=== PATIENT | female | born 1970 | race Caucasian/White ===

== ENCOUNTER 2024-02-06 13:11 | Outpatient (CLI) | payer BC, SELFPAY ==
--- NOTE | ~2024-02-06 | US_ITS ---
EXAMINATION: US thyroid DATE: 02/06/2024 13:48 INDICATION: Thyroid nodule. TECHNIQUE: Multiple ultrasound images of the thyroid were obtained. COMPARISON: None. FINDINGS: The right thyroid lobe measures 6.5 x 2.2 x 2.3 cm. The left thyroid lobe measures 5.8 x 2.1 x 2.4 c m. There is diffusely heterogeneous and hypoechoic. Vascularity is normal. In the left thyroid lobe, there is a 2.4 cm solid, isoechoic, wider than tall nodule with ill-defined margin without echogenic foci (TI-RADS TR3). In the right thyroid lobe, there is a 2.0 cm solid, hypoechoic, wider than tall nodule with smooth margin without echogenic foci (TR4). In the right thyroid lobe, there is a 17 mm s olid, hypoechoic, wider than tall nodule with ill-defined margin without echogenic foci (TR4). IMPRESSION: 1. Multinodular goiter. Ultrasound-guided fine-needle aspiration of 2 nodules is recommended. Reviewed, dictated and finalized at location E. IMPRESSION: 1. Multinodular goiter. Ultrasound-guided fine-needle aspiration of 2 nodules i s recommended.
== END 2024-02-06 13:12 ==
LOC: MICIMG 13:14
PROVIDERS: PCP Internal Medicine; Visit Provider Nurse Practitioner
DX: E04.2 Nontoxic multinodular goiter (principal)
CPT/HCPCS: 76536

== ENCOUNTER 2024-12-12 11:47 | Outpatient (CLI) | payer BC, SELFPAY ==
--- NOTE | ~2024-12-12 | US_ITS ---
Pelvic ultrasound. Clinical History: Abnormal uterine bleeding Technique: Realtime transvaginal scanning of the pelvis was performed. Color flow Doppler and Doppler spectral analysis were performed. Findings: The uterus is anteverted, and measures 9.4 x 4.6 x 5.5 cm. The endometrial stripe has a th ickness of 3 mm. Lower uterine segment fibroid measures 2.4 cm in diameter. Probable ill-defined intr amural fibroid posteriorly measures 2.1 cm in diameter. The right ovary measures 2.3 x 1.6 x 2.1 cm. No significant right ovarian or adnexal mass is seen. The left ovary is not visualized. No significant left ovarian or adnexal mass is seen. There is no evidence of free fluid in the cul de sac. Impression: Uterine fibroids, as above. Reviewed, dictated and finalized at location . Impression: Uterine fibroids, as above.
== END 2024-12-12 11:48 | disposition home or self-care (01) ==
LOC: MICIMG 11:48
PROVIDERS: PCP Internal Medicine; Visit Provider Obstetrics & Gynecology Gynecology
DX: N93.8 Other specified abnormal uterine and vaginal bleeding (principal); D25.9 Leiomyoma of uterus, unspecified
CPT/HCPCS: 76830

== ENCOUNTER 2025-01-21 01:05 | Day surgery (SDC) | payer BC, SELFPAY ==
[2025-01-18 08:15] VITALS: BMI 34.5
--- NOTE | 2025-01-18 08:24 | PC.NURSE ---
Report to the Outpatient Waiting Room, entrance under the green pavilion located off [facility], at time _0630_ on date _[id number]_. Planned Procedure Time: __.? Time changes happen often and if your time is changed the preop area will call you the afternoon before. - You and your visitor will be asked to self-screen and do not enter if you have any COVID symptoms. Please call surgeon if you need to reschedule. - A mask is optional within the hospital at this time. Patients may have clear liquids (water, carbonated beverages, clear teas, apple juice) until 3 hours prior to surgery with a maximum of 20 ounces. - No food from midnight until time of surgery and no smoking, or chewing tobacco (or any form of nicotine). No chewing gum, candy or mints. Take only the following medications with a SIP of water on the morning of surgery: ____None DO NOT STOP ANY OF YOUR OTHER PRESCRIPTION MEDICATIONS PRIOR TO SURGERY EXCEPT THE FOLLOWING Hold all vitamins and supplements for 3 days per anesthesiologist. Medications to discontinue per physician Date to take last dose Please no make-up, nail [place], hairspray, perfume, deodorant, or body powder the day of surgery.? No jewelry (including any body piercings) or valuables the day of surgery, leave them at home.? Please take a shower or bath the night before, or the morning of, surgery with an antibacterial soap.? Wear comfortable, loose fitting clothing.? - Jewelry must be removed prior to entering the operating room.? Rings and piercings that are not removed may be cut off. - The hospital will not accept responsibility for valuables.? - Please leave all valuables, including medications, at home the day of surgery. If you are going home after surgery, a licensed driver manager must drive you home.? - NO public transportation without another adult if you receive anesthesia. - We recommend that an adult stay with you for 24 hours following discharge. - We also recommend that you do not drive, make important decision, drink alcoholic beverages, or take any drugs that were not prescribed by your health care provider for at least 24 hours after your discharge time. Follow any additional instructions given to you from your surgeon. Telephone instructions given to __Esthela__and asked if any additional questions and then verbalized understanding. Patient advised to call surgeon office or pre surgery nurse liaison [phone] if any additional questions.
[2025-01-21 06:40] VITALS: BP 143/75; PULSE 76; RESP 14; TEMP 36.5; O2SAT 100
[2025-01-21] MEDS: ACETAMINOPHEN 500 MG TABLET 1000 MG PO (07:15)
[2025-01-21] MEDS: LACTATED RINGERS 1,000 ML 30 ML IV CONT (07:15)
--- NOTE | 2025-01-21 07:26 | WPDHPUPDATE1 ---
History and Physical Update Update Date/Time: 01/21/25 07:26 History and Physical has been reviewed, including an updated exam of the patient. There are NO changes in the patient's condition. Risks, benefits, and alternatives have been discussed and questions answered. Patient agrees to proceed with procedure.
--- NOTE | 2025-01-21 07:26 | PM.HPGS ---
History of Present Illness History of Present Illness Consent: Risks, benefits, and alternatives have been discussed and questions answered. Patient agrees to proceed with procedure. Chief complaint: abnormal uterine bleeding, fibroids Narrative: Esthela Pappas is a 54 year old female with heavy vaginal bleeding and ultrasound showing fibroids. It was recommended to undergo D&C hysteroscopy for further evaluation. Risks of infection, bleeding, and perforation, are reviewed. Patient voices understanding and agrees to proceed. Review of Systems Review of Systems: not repeated day of surgery; patient states no changes in status PMFSH Past Medical History Medical History (Updated 01/21/25 @ 07:29 by Marina Mathur MD) (normal spontaneous vaginal delivery) X4 Asthma Aortic stenosis Hypertension Hyperlipidemia Surgical History Surgical History (Updated 01/21/25 @ 07:29 by Marina Mathur MD) History of left breast biopsy History of laparoscopic cholecystectomy Social History Social History Smoking status: Never smoker Alcohol intake: current Living arrangements: with family Meds Home Medications and Allergies Home Medications ?Medication ?Instructions ?Recorded ?Confirmed ?Type olmesartan 40 1 tablet PO .noon 01/18/25 01/18/25 History mg-hydrochlorothiazide 12.5 mg tablet rosuvastatin 40 mg tablet 40 mg PO .noon 01/18/25 01/18/25 History Allergies Allergy/AdvReac Type Severity Reaction Status Date / Time latex Allergy Intermediate Rash Verified 01/18/25 08:14 hydrocodone AdvReac Severe Chest Pain Verified 01/18/25 08:14 Exam Const: General: healthy appearing and alert Orientation/consciousness: patient oriented x3 Resp: Effort & Inspection: normal respiratory effort GI: GI Palp: Yes Soft to palpation, No Tenderness to palpation present (GI) and No Palpable mass present : External Female Exam: normal external appearance Speculum Exam - Vagina: normal appearance of the vagina and normal vaginal discharge Speculum Exam - Cervix: normal appearance of the cervix Bimanual exam- vagina & uterus: uterine size normal and consistency normal Bimanual Exam- Adnexa, other: normal adnexae and No adnexal tenderness Neuro: General: patient oriented x3 Assessment and Plan Assessment and plan (1) Menorrhagia: Code(s): N92.0 - Excessive and frequent menstruation with regular cycle Status: Acute Assessment and Plan: Plan to proceed with D&C hysteroscopy
--- NOTE | 2025-01-21 07:42 | P.PNAN_ITS ---
Anes - Initial Pre Proc Eval Procedure: Operation Date: 01/21/25 08:30 Proposed Procedures p Hysteroscopy Dilation and Curettage, Possible Myomectomy - Marina Mathur MD Date/Time: 01/21/25 07:42 Surgeon: Marina Mathur MD Pre Op Diagnosis: abnormal uterine bleeding, fibroids Patient Data Age: 54 Gender: F Height: 1.63 m Weight: 91.4 kg Allergies Allergy/AdvReac Type Severity Reaction Status Date / Time latex Allergy Intermediate Rash Verified 01/18/25 08:14 hydrocodone AdvReac Severe Chest Pain Verified 01/18/25 08:14 Home Medications ?Medication ?Instructions ?Recorded ?Confirmed ?Type olmesartan 40 1 tablet PO .noon 01/18/25 01/18/25 History mg-hydrochlorothiazide 12.5 mg tablet rosuvastatin 40 mg tablet 40 mg PO .noon 01/18/25 01/18/25 History Laboratory Tests 01/21/25 07:11 Sodium Pending Potassium Pending Chloride Pending Carbon Dioxide Pending Anion Gap Pending BUN Pending Creatinine Pending Estim Creat Clear Calc Pending Estimated GFR Pending Glucose Pending Calcium Pending Patient hx anesthesia problems: none Family hx anesthesia problems: none Results Review: All pre-operative results and documents have been reviewed as part of the pre- operative evaluation. [facility] Past Medical History Medical History (Updated 01/21/25 @ 07:29 by Marina Mathur MD) (normal spontaneous vaginal delivery) X4 Asthma Aortic stenosis Hypertension Hyperlipidemia Surgical History Surgical History (Updated 01/21/25 @ 07:29 by Marina Mathur MD) History of left breast biopsy History of laparoscopic cholecystectomy Social History Social History Smoking status: Never smoker Alcohol intake: current Living arrangements: with family Anes - Eval Final PreProcedure Day of Procedure 01/21/25 07:42 Patient weight: obese Heart: regular rate and rhythm Lungs: clear to auscultation Airway: Mallampati scale class II Neurological: alert and oriented Last oral intake: >/= 8 hours ASA classification: III Emergent: no Anesthetic plan: proceed Anesthesia type and monitoring: general GIVS and standard monitoring Results Review: All pre-operative results and documents have been reviewed as part of the pre-operative evaluation. Informed Consent: The patient's anesthetic plan and its attendant risks and benefits were discussed with the patient/family/POA. Questions were solicited and answers provided to the satisfaction of the patient/family/POA.
[2025-01-21 07:53] LABS: BEDSIDEPREGUCG Negative (Negative)
[2025-01-21 08:12] LABS: Anion Gap 8 mmol/L (4-12); Blood Urea Nitrogen 13 mg/dL (7-17); Calcium 9.3 mg/dL (8.4-10.2); Carbon Dioxide 27 mmol/L (22-30); Chloride 105 mmol/L (98-107); Estimated CRCL calculation 73 ml/min; Estimated Glomerular Filt Rate > 60; Glucose 99 mg/dL (65-110); Potassium 3.6 mmol/L (3.4-5.0); Sodium 140 mmol/L (137-145)
[2025-01-21] MEDS: KETOROLAC 15 MG/ML VIAL (*BKC) IV PUSH (08:29)
--- NOTE | 2025-01-21 08:29 | S_PTH ---
PATIENT: Esthela Pappas LOC: [facility] U#:[id number] AGE/SX: 54/F ROOM: RE01/21/[address]: Marina Mathur MD : 1970 BED: DIS: 01/21/2025 SPEC #: [id number] RECD: 01/21/25 10:48 STATUS: JULIOCESAR REQ #: [id number] LALITA: 01/21/25 08:[address]: Marina Mathur DEPT: [facility] Surgical RECD BY: Nicole Bonner ENTERED: 01/21/25 10:48 SP TYPE: Surgical OTHR DR: Meet BoboMD Tissues: A - Endometrial Curettings Procedures: Hematoxylin and Eosin Stain Gross and Microscopic Level 4
--- NOTE | 2025-01-21 08:36 | W.PM.PROC2 ---
Procedure Note - Detailed Date of Procedure 01/21/25 Pre-op Diagnosis abnormal uterine bleeding, fibroids Post-op Diagnosis Same Procedure Performed D&C hysteroscopy Surgeon Marina Mathur MD Anesthesia MAC Findings Uterus sounds to 8cm and appears grossly atrophic with no lesions. No submucosal fibroids noted. Description of Procedure The patient was taken to the operating room and placed under anesthesia in the dorsal lithotomy position. She was prepped and draped in the usual sterile fashion. [place] speculum was placed in the vagina and the cervix was grasped on the anterior lip with a tenaculum. The sound is placed in the past internal os. The Hegar dilators were used and the cervix serially dilated to a 6 Hegar. The sound was then placed in the uterus is noted to be 8cm. The large Aveta hysteroscope was placed due to ultrasound findings of fibroids. However, the endometrium appears grossly normal with no fibroids or lesions. The hysteroscope was then removed and the sharp curette used to curette the endometrium until a good uterine cry was noted in all areas. Minimal material was obtained consistent with the visual appearance. All instruments are removed. Sponge, needle, and instrument counts are correct per the OR staff. Estimated Blood Loss 5 Drains No Packing No Pathology Yes (Endometrial curettings) Complications No immediate complications Condition Stable Disposition PACU
[2025-01-21 08:38] VITALS: BP 122/58; PULSE 62; RESP 14; O2SAT 100
[2025-01-21 09:05] VITALS: BP 124/62; PULSE 63; O2SAT 98
[2025-01-21 09:35] VITALS: BP 107/55; PULSE 65
[2025-01-21 10:05] VITALS: BP 109/66; PULSE 70
== END 2025-01-21 10:12 | disposition home or self-care (01) ==
PROVIDERS: Anesthesiology; PCP Internal Medicine; Visit Provider Obstetrics & Gynecology Gynecology
PROC: 0U5B8ZZ Destruction of Endometrium, Via Natural or Artificial Opening Endoscopic (ICD-10-PCS; CPT 58563; principal; 2025-01-21 08:30)
DX: N92.0 Excessive and frequent menstruation with regular cycle (principal); E66.9 Obesity, unspecified; Z68.35 Body mass index [BMI] 35.0-35.9, adult
CPT/HCPCS: 58558; 36415; 80048; 88305; A9270; J1100; J1885; J2003; J2250; J2405; J2704; J3010; J7120